=== PATIENT | male | born 1935 | race Caucasian/White ===

== ENCOUNTER 2016-12-22 11:54 | Inpatient (IN) | payer OTHER ==
[2016-12-22] MEDS ORDERED: ASPIRIN PO STA (11:56)
--- NOTE | 2016-12-22 12:05 | EKG Report ---
Test Performed on : 12/22/2016 11:55:10 AM Test Reason : CHEST PAIN Blood Pressure : / mmHG Vent. Rate : 063 BPM Atrial Rate : 063 BPM P-R Int : 174 ms QRS Dur : 108 ms QT Int : 418 ms P-R-T Axes : 028 -52 089 degrees QTc Int : 427 ms Sinus rhythm. with frequent premature ventricular complexes. with ventricular escape complexes. Left axis deviation Incomplete left bundle branch block Left ventricular hypertrophy with repolarization abnormality Abnormal ECG No previous ECGs available Unconfirmed Result
[2016-12-22 12:13] LABS: MANUAL DIFF NEEDED? NO
[2016-12-22 12:18] LABS: BASO% 0.5 % (0.0-0.8); EOS# 0.29 X1000 (0.0-0.7); EOS% 3.8 % (0.0-10.0); HEMATOCRIT 42.9 % (42.0-52.0); HEMOGLOBIN 14.7 g/dL (14.0-18.0); IMM GRAN# 0.02 X1000 (0.0-0.04); IMM GRAN% 0.3 % (0.0-0.5); LYMPH# 2.08 X1000 (1.2-3.4); LYMPH% 27.5 % (20.5-51.1); MCH 30.7 PG (27-31); MCHC 34.3 g/dL (33-37); MCV 89.6 FL (81-99); MONO# 0.66 X1000 (0.11-0.59); MONO% 8.7 % (1.7-9.3); MPV 11.4 FL (7.4-10.4); NEUT% 59.2 % (42.2-75.2); PLT 159 X1000 (130-400); RBC 4.79 XMIL (4.7-6.1)
[2016-12-22 12:42] LABS: INR 1.02 (0.86-1.15); PROTIME 13.7 Seconds (12.1-15.5); PTT PL 31.6 Seconds (22.6-43.9)
[2016-12-22 12:46] LABS: ALBUMIN 4.3 g/dL (3.5-5.0); CALCIUM 9.6 mg/dL (8.8-10.2); MAGNESIUM 2.2 mg/dL (1.5-2.7); POTASSIUM 4.2 mmol/L (3.5-5.1); TOTAL BILIRUBIN 0.5 mg/dL (0.20-1.00); TOTAL PROTEIN 7.2 g/dL (6.3-8.3)
--- NOTE | 2016-12-22 12:58 | PROVIDER DOCUMENTATION ---
HPI-Chest Pain - General Chief Complaint: Chest Pain Stated Complaint: CHEST PAIN Time Seen by Provider: 12/22/16 12:13 Source: patient, family Allergies/Adverse Reactions: Patient Allergies Allergy/AdvReac Type Severity Reaction Status Date / Time amoxicillin trihydrate * Allergy RASH Verified 12/22/16 12:03 [From Amoxil] Home Medications: Home Medication List Medication Instructions Recorded Confirmed Last Taken Type B2/Vits A,C,E/Lut/Zeaxanth/Min 12/22/16 12/22/16 History [Icaps Tablet] Doxazosin [Cardura] 2 mg PO DAILY 12/22/16 12/22/16 12/22/16 History Metoprolol [Lopressor] 50 mg PO QAM 12/22/16 12/22/16 12/22/16 History PRAVAstatin [Pravachol] 40 mg PO QHS 12/22/16 12/22/16 12/22/16 History - History of Present Illness-CP Nature of Presenting Problem: pt is a 81 y/o M presents to the Er with burning chest pain. pt states heartburn started 3 days ago and it radiates to the left shoulder and elbow. pt denies nausea, vomiting, or urinary symptoms. Pt denies any chest pain for the last 5 years. pt has hx of angiogram 30 years ago negative hx of [place] or stroke. pt also has a hx of diverticulitis and PVC's Location: reports: other (left chest and radiates to left shoulder and elbow) Chest Pain Radiation: reports: shoulders Quality of Pain: reports: burning Severity in ED: moderate Onset/Duration: 3 days ago Timing: intermittent Context/Activities at Onset: reports: none Modifying Factors: improves with: nothing Nitro Today/Relief: no nitro taken today Aspirin Treatment Today: 325 mg x 1, provided by ED Review of Systems - Adult - REVIEW OF SYSTEMS - ADULT Constitutional: denies: fever, fatique, night sweats Eyes: reports: no symptoms reported Ears, Nose, Mouth & Throat: reports: no symptoms reported Cardiovascular: reports: see HPI, chest pain. denies: edema, PND Respiratory: denies: chronic cough, cough, dyspnea on exertion Gastrointestinal: reports: no symptoms reported Genitourinary: reports: no symptoms reported Musculoskeletal: reports: no symptoms reported Integumentary: reports: no symptoms reported Neurological: reports: no symptoms reported Psychiatric: reports: no symptoms reported Endocrine: reports: no symptoms reported Hematologic/Lymphatic: reports: no symptoms reported Allergic/Immunologic: reports: no symptoms reported All Other Systems: Reviewed and Negative Past History - Adult - PAST MEDICAL HISTORY-ADULT Review of Records: reports: Nursing Assessment Review Major Childhood Illnesses: reports: denies history Cardiovascular: reports: HTN, hyperlipidemia, other (hx of PVC's ) Gastrointestinal: reports: other (diverticulitis ) Musculoskeletal: reports: other (hx of back surgery ) - PRIOR SURGERIES/PROCEDURES Surgical/Procedure History: reports: none (lower back ), back/neck - IMMUNIZATION STATUS Childhood Immunizations: See Nurse Assessment Flu Vaccine: See Nurse Assessment - SOCIAL HISTORY Smoking: denies Substance Use: none/never Alcohol Use Frequency: never Physical Exam-General - PHYSICAL EXAM-ADULT Initial Vital Signs Reviewed: Yes - CONSTITUTIONAL General Appearance: appears well, alert - EYES Eyes: PERRL/EOMI, pink conjunctivae - HEAD, EARS, NOSE, MOUTH & THROAT HENMT: moist mucous membranes - NECK Neck: non-tender, full range of motion - RESPIRATORY Respiratory: chest non-tender, lungs clear - CARDIOVASCULAR Cardiovascular: no edema, no gallop, other (freq pvc sinus rhythm) - GASTROINTESTINAL (ABDOMEN) Abdominal Exam: normal bowel sounds, non tender, soft - MUSCULOSKELETAL Extremity: normal range of motion, non-tender - SKIN Integumentary: normal color, normal turgor, warm/dry - NEUROLOGIC Neurologic: grossly normal, no motor/sensory deficits - PSYCHIATRIC Psych/Mental Status: normal mood/affect, normal thought content, normal thought process, oriented x 3 Progress - PLAN OF CARE/RESULTS Progress/Plan/Lab Results: Orders Category Date Time Status Cardiac Monitoring DIRECTED Care 12/22/16 11:57 Active Oxygen Therapy- ED Nursing DIRECTED Care 12/22/16 11:57 Active Saline Loc NOW Care 12/22/16 11:57 Active CHEST-2 VIEWS [RAD] Stat Exams 12/22/16 11:57 Taken CBC WITH ELECTRONIC DIFF [HEME] Stat Lab 12/22/16 12:00 Completed CK PROFILE [SP CHEM] Stat Lab 12/22/16 12:00 Completed COMPREHENSIVE METABOLIC PANEL [CHEM] Stat Lab 12/22/16 12:00 Completed MAGNESIUM [CHEM] Stat Lab 12/22/16 12:00 Completed PRO B-NATRIURETIC PEPTIDE Stat Lab 12/22/16 12:00 Com[address]IME WITH INR PL [COAG] Stat Lab 12/22/16 12:[address] [COAG] Stat Lab 12/22/16 12:00 Completed TROPONIN T Stat Lab 12/22/16 12:00 Completed Aspirin Med 12/22/16 11:56 Discontinued 325 mg PO STAT STA EKG [EKG] Stat Ther 12/22/16 11:57 Draft Vital Signs - 24 hr 12/22/16 11:56 Temperature 98 F Pulse Rate 70 Respiratory 16 Rate Blood Pressure 171/78 O2 Sat by Pulse 95 Oximetry Laboratory Tests 12/22/16 12/22/16 12/22/16 12:00 12:00 12:00 WBC RBC Hgb Hct MCV MCH MCHC RDW Std Deviation Plt Count MPV Immature Gran % (Auto) Neut % (Auto) Lymph % (Auto) [place] % (Auto) Eos % (Auto) Baso % (Auto) Immature Gran # (Auto) Neut # (Auto) Lymph # (Auto) [place] # (Auto) Eos # (Auto) Baso # (Auto) PT INR APTT (Factor Assay) Sodium 138 Potassium 4.2 Chloride 104 Carbon Dioxide 23 L Anion Gap 12 BUN 17 Creatinine 1.3 H Estimated GFR/1.73 m2 53 BUN/Creatinine Ratio 13 Glucose 133 H Calculated Osmolality 279 Calcium 9.6 Magnesium 2.2 Total Bilirubin 0.50 AST 27 ALT 27 Alkaline Phosphatase 53 Creatine Kinase 88 Troponin T < 0.010 Mkd-D-Bivwymocyzg Pept 186 Total Protein 7.2 Albumin 4.3 Globulin 3.0 Albumin/Globulin Ratio 1.0 12/22/16 12/22/16 12:00 12:00 WBC 7.55 RBC 4.79 Hgb 14.7 Hct 42.9 MCV 89.6 MCH 30.7 MCHC 34.3 RDW Std Deviation 13.3 Plt Count 159 MPV 11.4 H Immature Gran % (Auto) 0.3 Neut % (Auto) 59.2 Lymph % (Auto) 27.5 [place] % (Auto) 8.7 Eos % (Auto) 3.8 Baso % (Auto) 0.5 Immature Gran # (Auto) 0.02 Neut # (Auto) 4.46 Lymph # (Auto) 2.08 [place] # (Auto) 0.66 H Eos # (Auto) 0.29 Baso # (Auto) 0.04 PT 13.7 INR 1.02 APTT (Factor Assay) 31.6 Sodium Potassium Chloride Carbon Dioxide Anion Gap BUN Creatinine Estimated GFR/1.73 m2 BUN/Creatinine Ratio Glucose Calculated Osmolality Calcium Magnesium Total Bilirubin AST ALT Alkaline Phosphatase Creatine Kinase Troponin T Uxy-H-Vclqhbxjtnz Pept Total Protein Albumin Globulin Albumin/Globulin Ratio at 1305 dr latif was paged - EKG 1 Time of EKG reading by physician:: 11:55 EKG Read and Signed by:: Yasmani Estes EKG Interpretation (*Must complete 3 of following elements*): Abnormal Rate: 63 Rhythm: sinus w/freq pvc w/ ventricular escape complexws [place]: left QRS: LVH (with repolarization abnormality), other (incomplete RBBB) - XRAY 1 XRAY: Bilateral XRAY Study: Chest Impression: Normal XRAY Interpretation: claude dye) - CONSULTS/PCP/HOSPITALIST Notification #1 *Consult/PCP/Hospitalist*: MD francisco Time Discussed: 13:11 Reason/Comments: MD made aware of pt will see pt upon admission #2 Consult: Dr. Latif Time Discussed: 13:59 Consult Disposition: Admit Departure - Departure Time of Disposition Order: 13:20 DIAGNOSIS: Chest pain Qualifiers: Chest pain type: unspecified Qualified Code(s): R07.9 - Chest pain, unspecified Disposition: ADMITTED INPATIENT 09 Certified Medical Emergency: Emergent Condition: Stable Referrals: Pavel Latif MD [Primary Care Provider] - Attestation - Scribe Verification/Attestation Scribe:: Tish Kathleen Acting as Scribe for:: Yasmani Estes Scribe documention review:: This chart was documented by a scribe and accurately reflects the service the provider performed and the decisions made by the provider.
[2016-12-22] MEDS ORDERED: ZOFRAN IV PRN (13:04)
[2016-12-22] MEDS ORDERED: TYLENOL PO PRN (13:04)
[2016-12-22] MEDS ORDERED: MORPHINE IV PRN ×2 (13:04→15:33)
--- NOTE | 2016-12-22 13:29 | Diag Imaging Result Document ---
PROCEDURE NAME: CHEST-2 VIEWS - 12/22/2016 PA AND LATERAL RADIOGRAPH OF THE CHEST: COMPARISON: None available. FINDINGS: The lungs are grossly clear. There is no discrete pleural fluid collection or evidence of pneumothorax. The cardiomediastinal silhouette and upper airway are grossly unremarkable. IMPRESSION: No evidence of acute chest pathology.
--- NOTE | 2016-12-22 14:25 | EKG Report ---
Test Performed on : 12/22/2016 2:13:41 PM Test Reason : repeat Blood Pressure : / mmHG Vent. Rate : 057 BPM Atrial Rate : 057 BPM P-R Int : 174 ms QRS Dur : 108 ms QT Int : 440 ms P-R-T Axes : 040 -49 089 degrees QTc Int : 428 ms Sinus bradycardia. with occasional premature ventricular complexes. Left axis deviation Left ventricular hypertrophy with repolarization abnormality Abnormal ECG When compared with ECG of 22-DEC-2016 11:55, (Unconfirmed) Sinus rhythm. is no longer with ventricular escape complexes. Unconfirmed Result
--- NOTE | 2016-12-22 16:34 | CONSULTATION ---
DATE OF CONSULTATION: 12/22/2016 REQUESTING PHYSICIAN: Dr. Pavel Latif and Dr. Estes, Emergency Room REASON FOR CONSULTATION: Ventricular tachycardia, chest discomfort. HISTORY: Mr. Hodge is a 81-year-old male followed normally by Dr. Latif. Presented to the Emergency Room today around noontime with complaints of three days of discomfort that he described like a heartburn type of feeling involving the elbow up to the left shoulder and to the left shoulder blade. This has been going on intermittently for relatively short periods of time, not associated with exercise. In fact, he said that he walked on the treadmill yesterday for 10 minutes and did not experience anything along those lines. When he presented to the emergency room because he was not feeling well, they noted on his monitor tech that he was having frequent PVCs, sometimes unifocal, sometimes multifocal with ventricular couplets, and multiple runs of nonsustained ventricular tachycardia including 6 beats, 10 beats, 8 beats. No significant pauses were noted. He has been admitted for evaluation and management of this condition. PAST HISTORY: His past history is really not very contributory. He said that he was diagnosed with having some sort of irregular heartbeat many years ago. At some point, he was referred to linotype machinist in [place], who performed an angiogram and found no evidence of any coronary disease; however, at that time, he was not having any chest pains. He has hypertension. He has hyperlipidemia. SURGICAL HISTORY: He has had low back surgery in the past. He had some issues with prostate as well as diverticulosis. Other than that, he has been pretty healthy and relatively active. HOME MEDICATIONS: His home medications at this time include pravastatin 40 mg at bedtime, Cardura 2 mg daily, metoprolol 50 mg in the morning. He also takes multivitamins. ALLERGIES: He is allergic to amoxicillin. REVIEW OF SYSTEMS: Multiple systems were checked including hearing, visual, skin, psychiatric, neurological, gastrointestinal, cardiovascular, pulmonary, renal, genitourinary , metabolic, etc., and no positives were found other than what I have reported in the History of Present Illness and possible significant snoring/sleep apnea. FAMILY HISTORY: Noncontributory. His son has had coronary disease. He had the so-called "- maker lesion", and he underwent stenting. SOCIAL HISTORY: He has been to his for 60 years. He has two grown -up children. 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 He has never been a smoker nor a drinker. He states that he is very active physically doing stuff around the house and his property. He has no physical limitations. PHYSICAL EXAMINATION: Vital signs: Today, blood pressure 114/90, temperature 98 degrees, pulse 63, respirations 11. Weight is 212 pounds. His height is 5'11". General: He is awake, alert, oriented, in no distress. HEENT: Unremarkable. Chest clear to auscultation and percussion. Heart sounds regular and rhythmic. He has extrasystoles at times. No rub or murmur is noted. Abdomen: Obese, nontender. There is no hepatomegaly. No bruits. Extremities : Extremities show good pulses. No peripheral edema. Neurological exam: He moves four extremities, follows commands. Cranial nerves are normal. LAB WORK: Sodium 138, potassium 4.2. BUN is 17, creatinine 1.3, chloride 104, carbon dioxide 23. Troponin has been checked twice. Both are negative. Albumin is normal. PT/PTT normal. IMAGING STUDIES: Chest x-ray has been reported as not showing any acute pathology. EKG: EKG done in the emergency room showed sinus rhythm with a pattern of ventricular bigeminy at times. However, the PVCs are not monomorphic PVCs. He has no acute ST-segment changes. His MN interval is normal. QTC is 427. Heart rate was 63 beats per minute on the EKG done at 11:55 in the morning. IMPRESSION: 1. Patient presenting with atypical chest discomfort or anginal equivalent type of discomfort. 2. Patient demonstrating multiple runs of nonsustained ventricular tachycardia. 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 3. Patient with history of hypertension. 4. History of hyperlipidemia. 5. Possible sleep apnea syndrome. RECOMMENDATIONS: We will proceed with performing an echocardiogram right now. We will obtain serial cardiac enzymes and troponins. We will obtain a nuclear perfusion stress test in the morning and will probably recommend a left heart catheterization and an Electrophysiology consultation for him. At this point in time, I am going to suggest to put him on metoprolol 25 mg every six hours, and further advice will be given upon review of the results of the aforementioned test. Thank you again for the opportunity to participate in his evaluation. Best regards. ADÁN
[2016-12-22] MEDS: LOPRESSOR PO SCH ×2 (18:17→19:13)
[2016-12-22] MEDS ORDERED: PRAVACHOL PO SCH (21:00)
[2016-12-23] MEDS: LOPRESSOR PO SCH ×3 (01:31→18:48)
--- NOTE | 2016-12-23 06:08 | EKG Report ---
Test Performed on : 12/23/2016 06:00:16 AM Test Reason : ventricular tachycardia Blood Pressure : / mmHG Vent. Rate : 058 BPM Atrial Rate : 058 BPM P-R Int : 184 ms QRS Dur : 106 ms QT Int : 456 ms P-R-T Axes : 029 -50 080 degrees QTc Int : 447 ms Sinus bradycardia. with sinus arrhythmia. Left axis deviation Incomplete left bundle branch block Nonspecific T wave abnormality Abnormal ECG When compared with ECG of 22-DEC-2016 14:13, (Unconfirmed) premature ventricular complexes. are no longer present Confirmed by Pavel Latif MD ([id number]) on 01/06/2017 9:25:53 PM
[2016-12-23] MEDS ORDERED: LOPRESSOR PO SCH ×2 (09:00→14:45)
[2016-12-23] MEDS ORDERED: CARDURA PO SCH (09:00)
[2016-12-23] MEDS ORDERED: LEXISCAN ONE (12:25)
[2016-12-23] MEDS ORDERED: ASPIRIN PO SCH (14:45)
--- NOTE | 2016-12-23 17:18 | ECHO REPORT ---
ORDER DATE: 12/22/2016 INDICATION: Ventricular tachycardia and angina. FINDINGS: 1. The right atrium appears mildly enlarged at 4.1 cm. 2. There is mild tricuspid regurgitation. RV systolic pressure of 46. 3. Right ventricle does appear somewhat be somewhat enlarged with normal RV systolic function. 4. Mild pulmonic insufficiency. 5. Mild left atrial enlargement at 4.1 cm. 6. No mitral prolapse. Mild mitral regurgitation. 7. Left ventricle appears to be normal in size at 5.6 cm. Normal wall thicknesses with a posterior and interventricular septal wall thickness of 0.7 cm each. There is borderline normal LV systolic function with an estimated EF of around 50%. On some views, there does appear to be subtle hypokinesis of the inferior lateral wall. In addition, on some of the parasternal short axis views there appears to be an echogenic mass in the mid left ventricle. On further reviews this appears to be most consistent with a very prominent papillary muscle. 8. Aortic valve opens well. It is trileaflet. No evidence of stenosis or insufficiency. 9. Aorta appears normal visualized segments. 10. No pericardial effusion identified.
[2016-12-23 19:04] VITALS: BP 150/65
--- NOTE | 2016-12-23 19:27 | Diag Imaging Result Document ---
PROCEDURE NAME: MYOCARDIAL PERF SCAN, STR/REST - 12/23/2016 INDICATION: Angina, ventricular tachycardia. PROCEDURES PERFORMED: 1. One-day stress rest myocardial perfusion imaging. 2. Walking Lexiscan (results dictated by primary physician). PROCEDURE IN DETAIL: Mr. Hodge was brought to the [facility] and had a resting study with injection of 14.1 mCi of technetium-99m sestamibi with the usual imaging protocol utilized. He subsequently was brought back and had a walking Lexiscan. At peak stress he was injected with 41.6 mCi of technetium-99m sestamibi with the usual imaging protocol utilized. FINDINGS: 1. There is no evidence of abnormal extracardiac uptake. 2. TID ratio is 0.96. 3. Perfusion imaging demonstrates what appears to be a moderate size fixed defect that has mild to moderate intensity. It is located in the inferior apical, mid inferior, and basal inferior segments. Essentially this involves the entirety of the inferior wall. There is no clear evidence of ischemic changes on this study. 4. There is a normal ejection fraction of 58%. The end-diastolic volume is 88. The end systolic volume is 37. There may be very slight hypokinesis of the more distal portions of the mid inferior wall. 5. The Lexiscan stress results were dictated separately but notably on review of these the patient did have several bouts of ventricular tachycardia with the longest being 14 beats in duration with multiple other couplets and triplets noted throughout the course of the study. Reportedly the patient was not symptomatic during this study.
--- NOTE | 2017-01-20 22:40 | HISTORY AND PHYSICAL ---
The patient is a regular patient of [facility]. He is 81 years old. HISTORY OF PRESENT ILLNESS: He presented to the emergency room complaining of 3 days of discomfort, heartburn feeling involving his elbow up to his left shoulder and to the left shoulder blade. This has been going on intermittently for a short period of time, not associated with exercise. He walks regularly on a treadmill and exercises but does not experience any of these pains in that setting. He presented to the emergency room here feeling poorly. He stated he had some ectopics. He had frequent PVCs on his monitor with unifocal, multifocal couplets and multiple runs of nonsustained ventricular tachycardia including 6 beats, 10 beats and 8 beat runs. No significant pauses were noted. He is being admitted to evaluate that. PAST MEDICAL HISTORY: He has always had some type of irregular heartbeat. He was referred to [facility]. They did an angiogram and found no evidence of coronary artery disease, but at that time he was not having chest pain. He has a longstanding history of easily controlled hypertension and dyslipidemia. He has had previous back surgeries. He has a history of diverticulosis. He has some BPH. MEDICATIONS: He takes pravastatin 40, Cardura 2 mg, metoprolol 50 in the morning and multivitamin. ALLERGIC: Amoxicillin. PAST MEDICAL HISTORY: History of back surgery. He has a history of hypertension, dyslipidemia, and PVCs. He has a history of diverticulitis. He has some lower urinary tract problems. He denies smoking. He never drank. REVIEW OF SYSTEMS: Constitutional: He denies any fever, fatigue, night sweats, weight gain, weight loss. Eyes: No change in vision. No drainage. No irritation. Visual michelle are intact. Ears, Nose and Throat: No pharyngitis, otitis or sinusitis. Cardiovascular: Denies any edema, PND, orthopnea, history of congestive heart failure. Respiratory: Denies cough, shortness of breath, phlegm production, wheezing and asthma. Gastrointestinal: No nausea, vomiting, diarrhea, constipation, bloody stools, black stools, tarry stools. Genitourinary: Some lower urinary tract obstructive symptoms. Otherwise he has occasional nocturia. No hematuria, polyuria or pyuria. Musculoskeletal: He has had some chronic low back pain. Skin: No rashes. No lumps. Neurological: No TIA, seizures, syncope. Psychiatric: Negative. Endocrine: No polyuria or polydipsia. No heat or cold intolerance. Hematological: No bleeding or clotting disorder. No anemia. No leukemia. No changes in spleen. PHYSICAL EXAMINATION: VITAL SIGNS: At the time of admission he had a temperature of 98 degrees, pulse was 70, respiratory rate of 16, BP 171/78, O2 saturation was 95. HEENT: His head was normocephalic. Eyes were PERRLA. EOMs intact. Sclerae clear. Fundi benign. Nares patent. Oropharynx negative. NECK: Supple. Bounding carotids without thyromegaly. CHEST: Clear. CARDIOVASCULAR: Regular rhythm and rate. No murmurs, gallops, clicks, or rubs. ABDOMEN: Soft. No hepatosplenomegaly. No CVA tenderness. EXTREMITIES: Negative for clubbing, cyanosis, and edema. ADMITTING DIAGNOSIS: Chest discomfort, palpitations and shortness of breath. DISPOSITION: He was admitted.
== END 2016-12-23 19:35 | disposition short-term general hospital (02) | DRG 311 ==
LOC: P.ED 11:54 → P.ICU 13:28
PROVIDERS: ADMIT Internal Medicine; ATTEND Internal Medicine
DX: I20.9 Angina pectoris, unspecified (principal); I47.2 Ventricular tachycardia; I10 Essential (primary) hypertension; E78.5 Hyperlipidemia, unspecified; K57.90 Diverticulosis of intestine, part unspecified, without perforation or abscess without bleeding; G47.30 Sleep apnea, unspecified; N40.0 Benign prostatic hyperplasia without lower urinary tract symptoms; Z79.899 Other long term (current) drug therapy; Z82.49 Family history of ischemic heart disease and other diseases of the circulatory system
CPT/HCPCS: 71020; 78452; 80053; 82550; 83735; 83880; 84484; 85025; 85610; 85730; 93005; 93010; 93017; 93306; 94761; 99285; A9500